=== PATIENT | female | born 1950 | race Caucasian/White ===

== ENCOUNTER 2021-03-22 01:19 | Day surgery (SDC) | payer MEDICARE, SELFPAY ==
[2021-03-09 12:30] VITALS: BMI 23.0
--- NOTE | 2021-03-20 11:20 | PM.HPGS ---
History of Present Illness History of Present Illness Consent: Risks, benefits, and alternatives have been discussed and questions answered. Patient agrees to proceed with procedure. Chief complaint: epigastric pain, anemia Narrative: Shagufta Fuchs is a 70 year old female. she has been having recurrent epigastric pains for several months. It got so bad a month ago that she went to the emergency room. The pain at times feels as though there is something in there that once to crawl its way out. The CT scan there revealed some thickening at the gastroesophageal junction and also in the antrum and body of her stomach. She denies weight loss. She states the pain comes on suddenly and for no reason. There is no pattern, except that she is more likely to experience pain if she has been under stress. She states that she has indeed been under a lot of stress lately. She has been on Xanax, with 1 mg 4 times a day for several years. She denies dysphagia or heartburn. She denies any history of liver disease. She states that she was a fairly heavy drinker but quit [address] scan also mentioned the fact that she has varices. There was no mention of cirrhosis. An EGD in 2010 and 2012 revealed gastritis. Three years ago EGD revealed a bezoar. A subsequent gastric emptying scan was unremarkable. she has also been found to be anemic and is here for colon cancer screening as well Review of Systems Review of Systems: All systems reviewed & are unremarkable except as noted in HPI and below [facility] Social History Social History Smoking packs per day: 1.5 Smoking cigarettes per day: 30.0 Years smoked: 50 Smoking pack-years: 75.00 Smoking status: Current every day smoker Tobacco type: cigarettes Alcohol intake: never Substance use: never Substance use type: does not use Living arrangements: with family Spiritual care concerns: No Meds Home Medications and Allergies Home Medications Medication Instructions Recorded Confirmed Type alprazolam 1 mg tablet 1 mg PO QID 02/16/21 03/22/21 History atorvastatin 10 mg tablet 10 mg PO DAILY 02/16/21 03/22/21 History famotidine 20 mg tablet 20 mg PO BID tablet 02/16/21 03/22/21 History levothyroxine 100 mcg capsule 100 mcg PO DAILY 02/16/21 03/22/21 History lisinopril 20 mg tablet 20 mg PO DAILY 02/16/21 03/22/21 History omeprazole 40 mg capsule,delayed 40 mg PO DAILY 02/16/21 03/22/21 History release tramadol 50 mg tablet 50 mg PO ONCE PRN tablet 02/16/21 03/22/21 History diltiazem HCl 120 mg PO DAILY 03/09/21 03/22/21 History Allergies Allergy/AdvReac Type Severity Reaction Status Date / Time codeine Allergy Intermediate INCREASED Verified 03/22/21 08:59 BLOOD PRESSURE erythromycin base Allergy Unknown Unknown Verified 03/22/21 08:59 Exam Resp: Auscultation: clear to auscultation bilaterally Cardio: Rate: regular rate Rhythm: regular rhythm GI: GI Palp: Yes Soft to palpation and No Tenderness to palpation present (GI) Assessment and Plan Assessment and plan (1) Abdominal pain: Code(s): R10.9 - Unspecified abdominal pain Status: Acute Assessment and Plan: EGD with possible biopsy or dilatation or cautery. (2) Colon cancer screening: Code(s): Z12.11 - Encounter for screening for malignant neoplasm of colon Status: Acute Assessment and Plan: Colonoscopy with possible biopsy or polypectomy or cautery or injection of substances.
[2021-03-22 09:01] VITALS: BP 151/56; PULSE 83; RESP 16; TEMP 36.2; O2SAT 100
[2021-03-22] MEDS: LACTATED RINGERS 1,000 ML 150 ML IV CONT (09:04)
--- NOTE | 2021-03-22 09:38 | WPDANESEPPF ---
Anes - Initial Pre Proc Eval Procedure: Operation Date: 03/22/21 10:00 Proposed Procedures p Esophagogastroduodenoscopy & Colonoscopy - Dilip Angelo MD Date/Time: 03/22/21 09:38 Surgeon: Dilip Angelo MD Pre Op Diagnosis: epigastric pain, anemia Patient Data Age: 70 Gender: F Height: 1.6 m Weight: 57.6 kg Last Vital Signs Temp 97.1 F L 03/22/21 09:01 Pulse 83 03/22/21 09:01 Resp 16 03/22/21 09:01 BP 151/56 H 03/22/21 09:01 Pulse Ox 100 03/22/21 09:01 Allergies Allergy/AdvReac Type Severity Reaction Status Date / Time codeine Allergy Intermediate INCREASED Verified 03/22/21 08:59 BLOOD PRESSURE erythromycin base Allergy Unknown Unknown Verified 03/22/21 08:59 Home Medications Medication Instructions Recorded Confirmed Type alprazolam 1 mg tablet 1 mg PO QID 02/16/21 03/22/21 History atorvastatin 10 mg tablet 10 mg PO DAILY 02/16/21 03/22/21 History famotidine 20 mg tablet 20 mg PO BID tablet 02/16/21 03/22/21 History levothyroxine 100 mcg capsule 100 mcg PO DAILY 02/16/21 03/22/21 History lisinopril 20 mg tablet 20 mg PO DAILY 02/16/21 03/22/21 History omeprazole 40 mg capsule,delayed 40 mg PO DAILY 02/16/21 03/22/21 History release tramadol 50 mg tablet 50 mg PO ONCE PRN tablet 02/16/21 03/22/21 History diltiazem HCl 120 mg PO DAILY 03/09/21 03/22/21 History Patient hx anesthesia problems: none Family hx anesthesia problems: none Results Review: All pre-operative results and documents have been reviewed as part of the pre-operative evaluation. [facility] Social History Social History Smoking packs per day: 1.5 Smoking cigarettes per day: 30.0 Years smoked: 50 Smoking pack-years: 75.00 Smoking status: Current every day smoker Tobacco type: cigarettes Alcohol intake: never Substance use: never Substance use type: does not use Living arrangements: with family Spiritual care concerns: No Anes - Eval Final PreProcedure Day of Procedure 03/22/21 09:38 Patient weight: normal Heart: regular rate and rhythm Lungs: clear to auscultation Airway: Mallampati scale class II Neurological: alert and oriented Last oral intake: >/= 8 hours ASA classification: III Emergent: no Anesthetic plan: proceed Anesthesia type and monitoring: general GIVS and standard monitoring Results Review: All pre-operative results and documents have been reviewed as part of the pre-operative evaluation. Informed Consent: The patient's anesthetic plan and its attendant risks and benefits were discussed with the patient/family/POA. Questions were solicited and answers provided to the satisfaction of the patient/family/POA.
--- NOTE | 2021-03-22 10:02 | SUR.OPER ---
EGD: 0944 - 0978 Colon: 4565 - 2516
[2021-03-22] MEDS: SIMETHICONE ORAL SUSPENSION 20 MG/0.3 ML 30 ML BOTTLE 0.6 ML IRRIGATION (10:04)
[2021-03-22] MEDS: BENZOCAINE (*SP) 60 ML SPRAY CAN (HURRICAINE) 1 SPRAY MUCOUS MEM (10:06)
[2021-03-22 10:11] VITALS: BP 100/41; PULSE 64; RESP 17; O2SAT 100
[2021-03-22 10:21] VITALS: BP 104/86; RESP 19; O2SAT 100
[2021-03-22 10:31] VITALS: BP 126/63; PULSE 74; RESP 17; O2SAT 100
== END 2021-03-22 10:50 | disposition home or self-care (01) ==
PROVIDERS: PCP Internal Medicine; Visit Provider Internal Medicine Gastroenterology
PROC: 0DJ08ZZ Inspection of Upper Intestinal Tract, Via Natural or Artificial Opening Endoscopic (ICD-10-PCS; CPT 43235; principal; 2021-03-22 10:00)
DX: Z12.11 Encounter for screening for malignant neoplasm of colon (principal); K57.30 Diverticulosis of large intestine without perforation or abscess without bleeding; K21.9 Gastro-esophageal reflux disease without esophagitis; K29.50 Unspecified chronic gastritis without bleeding; F17.210 Nicotine dependence, cigarettes, uncomplicated
CPT/HCPCS: 43239; G0121; 87081; 88305; J2704; J7120

== ENCOUNTER 2024-02-28 01:21 | Day surgery (SDC) | payer MEDICARE, SELFPAY ==
[2024-02-19 16:00] VITALS: BMI 22.8
--- NOTE | 2024-02-19 16:40 | PC.NURSE ---
Addendum entered by Tasneem Tovar RN 02/27/24 15:03: 02/27/2024 typo- pt last dose of Eliquis vs study drug was on 02/24/2024. Original Note: Spoke with PATIENT AND SPOUSE regarding medication ELIQUIS. Pt. verbalizes understanding that the last dose of ELIQUIS is to be taken on 02/28/2024 and the Endoscopist will instruct them when to restart after the procedure.
[2024-02-28 07:44] VITALS: BP 145/61; PULSE 71; RESP 18; TEMP 36.4; O2SAT 99
[2024-02-28 07:58] VITALS: BMI 23.5
[2024-02-28 08:05] LABS: Glucose Point of Care 104 mg/dl (65-105)
[2024-02-28] MEDS: LACTATED RINGERS 1,000 ML 150 ML IV CONT (08:07)
--- NOTE | 2024-02-28 09:12 | PM.IMHP ---
H&P: HPI History of Present Illness Date/Time: 02/28/24 09:12 Chief Complaint: Epigastric pain Narrative: the patient has been suffering from epigastric pain for several years, mainly triggered by stress or emotions. 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 Biopsies ruled out celiac disease. She is here for recurrent symptoms and repeat EGD. Review of Systems Review of Systems: All systems reviewed & are unremarkable except as noted in HPI and below PMFSH Social History Social History Smoking packs per day: 1.5 Smoking cigarettes per day: 30.0 Years smoked: 55 Smoking pack-years: 82.50 Smoking status: Current every day smoker Tobacco type: cigarettes Alcohol intake: current Substance use: never Substance use type: does not use Living arrangements: with family Spiritual care concerns: No Meds Home Medications and Allergies Home Medications Medication Instructions Recorded Confirmed Type alprazolam 1 mg tablet 1 mg PO QID 02/16/21 02/28/24 History atorvastatin 10 mg tablet 10 mg PO DAILY 02/16/21 02/28/24 History tramadol 50 mg tablet 50 mg PO ONCE PRN Pain 02/16/21 02/28/24 History bumetanide 1 mg tablet 1 mg PO DAILY 02/19/24 02/28/24 History buspirone 5 mg tablet 5 mg PO TID 02/19/24 02/28/24 History empagliflozin 25 mg tablet 25 mg PO DAILY 02/19/24 02/28/24 History (Jardiance) ferrous sulfate 325 mg (65 mg 325 mg PO BID 02/19/24 02/28/24 History iron) tablet (FeroSul) glimepiride 4 mg tablet 4 mg PO BID 02/19/24 02/28/24 History levothyroxine 88 mcg tablet 88 mcg PO DAILY 02/19/24 02/28/24 History metformin 500 mg tablet 500 mg PO BID 02/19/24 02/28/24 History metoprolol tartrate 25 mg tablet 12.5 mg PO BID 02/19/24 02/28/24 History pantoprazole 40 mg tablet,delayed 40 mg PO DAILY 02/19/24 02/28/24 History release apixaban 5 mg tablet (Eliquis) 5 mg PO BID 02/27/24 02/28/24 History insulin glargine 100 unit/mL (3 15 unit subcut QAM 02/27/24 02/28/24 History mL) subcutaneous pen (Lantus Solostar U-100 Insulin) Allergies Allergy/AdvReac Type Severity Reaction Status Date / Time codeine Allergy Intermediate INCREASED Verified 03/22/21 08:59 BLOOD PRESSURE erythromycin base Allergy Intermediate Unknown Verified 02/19/24 16:04 Vital Signs Vital Signs - 24 hr 02/28/24 07:44 Temperature 97.5 F L Pulse Rate 71 Respiratory Rate 18 Blood Pressure 145/61 H Pulse Oximetry 99 Oxygen Delivery Room Air Exam Const: General: cooperative and healthy appearing Resp: Effort & Inspection: normal respiratory effort and able to speak in complete sentences Auscultation: clear to auscultation bilaterally Cardio: Rate: regular rate Rhythm: regular rhythm GI: Inspection: normal to inspection GI Palp: No No hepatosplenomegaly present Auscultation: normal bowel sounds Rectal Exam: deferred Skin: General skin exam: normal color Psych: Appearance: grossly normal Mental Status: mental status grossly normal Assessment and Plan Assessment and plan (1) Abdominal pain: Code(s): R10.9 - Unspecified abdominal pain Status: Acute Assessment and Plan: The patient is deemed a good candidate for the procedure. Consent signed. Will proceed.
--- NOTE | 2024-02-28 09:19 | P.PNAN_ITS ---
Anes - Initial Pre Proc Eval Procedure: Operation Date: 02/28/24 09:00 Proposed Procedures p Esophagogastroduodenoscopy - Kuldeep Monroy MD Date/Time: 02/28/24 09:19 Surgeon: Kuldeep Monroy MD Pre Op Diagnosis: MARIE Patient Data Age: 73 Gender: F Height: 1.57 m Weight: 58.4 kg Last Vital Signs Temp 36.4 C L 02/28/24 07:44 Pulse 71 02/28/24 07:44 Resp 18 02/28/24 07:44 BP 145/61 H 02/28/24 07:44 Pulse Ox 99 02/28/24 07:44 O2 Del Method Room Air 02/28/24 07:44 Allergies Allergy/AdvReac Type Severity Reaction Status Date / Time codeine Allergy Intermediate INCREASED Verified 03/22/21 08:59 BLOOD PRESSURE erythromycin base Allergy Intermediate Unknown Verified 02/19/24 16:04 Home Medications Medication Instructions Recorded Confirmed Type alprazolam 1 mg tablet 1 mg PO QID 02/16/21 02/28/24 History atorvastatin 10 mg tablet 10 mg PO DAILY 02/16/21 02/28/24 History tramadol 50 mg tablet 50 mg PO ONCE PRN Pain 02/16/21 02/28/24 History bumetanide 1 mg tablet 1 mg PO DAILY 02/19/24 02/28/24 History buspirone 5 mg tablet 5 mg PO TID 02/19/24 02/28/24 History empagliflozin 25 mg tablet 25 mg PO DAILY 02/19/24 02/28/24 History (Jardiance) ferrous sulfate 325 mg (65 mg 325 mg PO BID 02/19/24 02/28/24 History iron) tablet (FeroSul) glimepiride 4 mg tablet 4 mg PO BID 02/19/24 02/28/24 History levothyroxine 88 mcg tablet 88 mcg PO DAILY 02/19/24 02/28/24 History metformin 500 mg tablet 500 mg PO BID 02/19/24 02/28/24 History metoprolol tartrate 25 mg tablet 12.5 mg PO BID 02/19/24 02/28/24 History pantoprazole 40 mg tablet,delayed 40 mg PO DAILY 02/19/24 02/28/24 History release apixaban 5 mg tablet (Eliquis) 5 mg PO BID 02/27/24 02/28/24 History insulin glargine 100 unit/mL (3 15 unit subcut QAM 02/27/24 02/28/24 History mL) subcutaneous pen (Lantus Solostar U-100 Insulin) Laboratory Tests 02/28/24 08:03 POC Capillary Glucose 104 mg/dl (65-105) Patient hx anesthesia problems: none Family hx anesthesia problems: none Results Review: All pre-operative results and documents have been reviewed as part of the pre- operative evaluation. [facility] Social History Social History Smoking packs per day: 1.5 Smoking cigarettes per day: 30.0 Years smoked: 55 Smoking pack-years: 82.50 Smoking status: Current every day smoker Tobacco type: cigarettes Alcohol intake: current Substance use: never Substance use type: does not use Living arrangements: with family Spiritual care concerns: No Anes - Eval Final PreProcedure Day of Procedure 02/28/24 09:19 Patient weight: normal Heart: regular rate and rhythm Lungs: clear to auscultation Airway: Mallampati scale class II Neurological: alert and oriented Last oral intake: >/= 8 hours ASA classification: III Emergent: no Anesthetic plan: proceed Anesthesia type and monitoring: general GIVS and standard monitoring Results Review: All pre-operative results and documents have been reviewed as part of the pre-o perative evaluation. Informed Consent: The patient's anesthetic plan and its attendant risks and benefits were discussed with the patient/family/POA. Questions were solicited and answers provided to the satisfaction of the patient/family/POA.
[2024-02-28 09:40] VITALS: BP 102/56; PULSE 70; RESP 18; O2SAT 97
[2024-02-28 09:50] VITALS: BP 97/55; PULSE 62; RESP 16; O2SAT 98
[2024-02-28 10:00] VITALS: BP 140/79; PULSE 73; RESP 16; O2SAT 100
[2024-02-28 10:17] LABS: Glucose Point of Care 105 mg/dl (65-105)
== END 2024-02-28 10:43 | disposition home or self-care (01) ==
PROVIDERS: PCP Internal Medicine; Visit Provider Internal Medicine Gastroenterology
PROC: 0DJ08ZZ Inspection of Upper Intestinal Tract, Via Natural or Artificial Opening Endoscopic (ICD-10-PCS; CPT 43235; principal; 2024-02-28 09:00)
DX: K29.50 Unspecified chronic gastritis without bleeding (principal); K21.9 Gastro-esophageal reflux disease without esophagitis; F17.210 Nicotine dependence, cigarettes, uncomplicated; Z79.891 Long term (current) use of opiate analgesic; Z79.84 Long term (current) use of oral hypoglycemic drugs; Z79.01 Long term (current) use of anticoagulants; Z79.4 Long term (current) use of insulin
CPT/HCPCS: 43239; 82948; 88305; J2003; J2704; J7120